=== PATIENT | female | born 1985 | race Caucasian/White ===

== ENCOUNTER 2017-12-18 13:16 | Emergency (ER) | payer OTHER ==
[2017-12-18 13:22] VITALS: BP 126/72; PULSE 94; TEMP 98.4; BMI 23.6
--- NOTE | 2017-12-18 13:41 | PDOC ---
History of Present Illness - General Chief Complaint: Pain Stated Complaint: R/O LT ANKLE SPRAIN Time Seen by Provider: 12/18/17 13:26 History Source: Patient Exam Limitations: No Limitations - History of Present Illness Initial Comments: CHIEF COMPLAINT: 32 y/o afebrile female with PMH CP c/o left ankle pain for a few days. HISTORY OF PRESENT ILLNESS: THe patient does not remember injuring her left foot but states she does trip a lot because of her CP. SHe states this morning her left ankle was swollen and tender. She can still walk on it. She denies numbness/tingling, warmth, streaking. Vital signs on arrival are within normal limits. REVIEW OF SYSTEMS: GENERAL/CONSTITUTIONAL: No fever/chills. No weakness. No weight change. MUSCULOSKELETAL: +left ankle pain. No neck or back pain. SKIN: No rash or easy bruising. NEUROLOGIC: No headache, vertigo, loss of consciousness, or loss of sensation. PHYSICAL EXAM: VITAL_SIGNS: within normal limits GENERAL_APPEARANCE: alert, cooperative, mild obvious discomfort. MENTAL_STATUS: speech clear, oriented X 3, responds appropriately to questions. NEURO: motor intact and sensory intact in injured extremity. EXTREMITIES: good pulse in injured extremity. MIld swelling and TTP of left lateral malleolus without deformities or crepitus. No warmth, erythema or streaking. SKIN: warm, dry, good color. Past History - Past Medical History Allergies/Adverse Reactions: Allergies Allergy/AdvReac Type Severity Reaction Status Date / Time hydromorphone HCl Allergy Severe Hives Verified 12/18/17 13:22 [From Dilaudid] baclofen AdvReac Intermediate Itching Verified 12/18/17 13:22 Home Medications: Ambulatory Orders Levothyroxine [Synthroid -] 100 mcg PO DAILY #0 tablet 06/29/11 Zolpidem Tartrate [Ambien] 10 mg PO ONCE 11/19/12 Ibuprofen [Motrin] 600 mg PO TID #30 tablet 11/14/15 Sulfamethoxazole/Trimethoprim [Bactrim *Ds*] 1 tab PO BID #14 tablet 11/14/15 Tramadol HCl 50 mg PO TID #5 tablet MDD 4 12/18/17 Anemia: No Asthma: No Cancer: No Cardiac Disorders: Yes (ARRYTHMIA) CVA: No COPD: No CHF: No Dementia: No Diabetes: No GI Disorders: No Disorders: No HTN: No Hypercholesterolemia: Yes Liver Disease: No Seizures: No Thyroid Disease: Yes (HYPOTHYROID) - Surgical History Abdominal Surgery: No Appendectomy: Yes Cardiac Surgery: Yes (CARDIAC ABLATION 2009) Cholecystectomy: No Lung Surgery: No Neurologic Surgery: No Orthopedic Surgery: No - Immunization History Td Vaccination: No Immunization Up to Date: Yes - Suicide/Smoking/Psychosocial Hx Smoking Status: No Smoking History: Never smoked Have you smoked in the past 12 months: No Number of Cigarettes Smoked Daily: 0 Hx Alcohol Use: Yes (OCCASIONAL) Drug/Substance Use Hx: No Substance Use Type: None Hx Substance Use Treatment: No *Physical Exam - Vital Signs Last Vital Signs Temp Pulse Resp BP Pulse Ox 98.4 F 94 H 18 126/72 99 12/18/17 13:18 12/18/17 13:18 12/18/17 13:18 12/18/17 13:18 12/18/17 13:18 Medical Decision Making - Medical Decision Making A/P: 32 y/o female with left ankle sprain. Plan is as follows: 1. Xray left ankle 2. PO tramadol Xray left ankle IMPRESSION: No acute fracture. No change since 2012. Patient was given JUICE bandage and RICE instructions. Instructed her to f/u with her doctor within 1 week if symptoms persist. The patient verbalizes understanding of all instructions, has no further questions and is awaiting discharge. *DC/Admit/Observation/Transfer Diagnosis at time of Disposition: Ankle sprain Qualifiers: Encounter type: initial encounter Involved ligament of ankle: unspecified ligament Laterality: left Qualified Code(s): S93.402A - Sprain of unspecified ligament of left ankle, initial encounter - Discharge Dispostion Disposition: HOME Condition at time of disposition: Good - Referrals Referrals: Sj Francisco [Primary Care Provider] - - Patient Instructions Printed Discharge Instructions: DI for Ankle Sprain, How To Perform RICE (Rest , Ice, Compress, Elevate) Additional Instructions: Discharge Instructions: -The xray of your ankle was negative -Please use JUICE bandage for comfort and follow RICE instructions -Return to the ER with any worsening or concerning symptoms - Post Discharge Activity
[2017-12-18] MEDS ORDERED: traMADol HCL 50 MG TABLET PO ONE (14:30)
[2017-12-18] MEDS ORDERED: traMADol HCL 50 MG TABLET ONE (14:38)
== END 2017-12-18 14:42 | disposition home or self-care (01) ==
LOC: JERFT 13:16
DX: S93.402A Sprain of unspecified ligament of left ankle, initial encounter (principal); Z91.81 History of falling; G80.9 Cerebral palsy, unspecified; E03.9 Hypothyroidism, unspecified; E78.00 Pure hypercholesterolemia, unspecified; Z86.79 Personal history of other diseases of the circulatory system; Z88.8 Allergy status to other drugs, medicaments and biological substances
CPT/HCPCS: 73610-TC-LT-FY; 73630-TC-LT; 99281-25

== ENCOUNTER 2018-12-08 23:15 | Emergency (ER) | payer OTHER ==
[2018-12-08 23:24] VITALS: BP 127/82; PULSE 96; TEMP 98.6; BMI 23.6
--- NOTE | 2018-12-08 23:51 | PDOC ---
History of Present Illness - General Chief Complaint: Pain Stated Complaint: PAIN (LFT HAND) Time Seen by Provider: 12/08/18 23:32 History Source: Patient Exam Limitations: No Limitations - History of Present Illness Initial Comments: 12/08/18 23:48 33YOF with h/o cerebral palsy, heart ablation x2, thyroid disorder, and appendectomy p/w right palmar wrist pain radiating to fingers and up to elbow for the past 10-15 days, significantly worse in the past 4 days. States she has seen her PCP who referred her to her neurologist, and she was supposed to have seen her neurologist for this already for an EMG but cancelled because the pain was increasing. She has an appointment for this coming Tuesday. She was prescribed Celebrex but has not taken it because she has a stated sensitive stomach. Tried Tylenol and has not helped. She additionally notes mild numbness/ tingling to right fingers but no additional symptoms, no recent trauma. Past History - Past Medical History Allergies/Adverse Reactions: Allergies Allergy/AdvReac Type Severity Reaction Status Date / Time hydromorphone HCl Allergy Severe Hives Verified 12/18/17 13:22 [From Dilaudid] baclofen AdvReac Intermediate Itching Verified 12/18/17 13:22 Home Medications: Ambulatory Orders Levothyroxine [Synthroid -] 100 mcg PO DAILY #0 tablet 06/29/11 Zolpidem Tartrate [Ambien] 10 mg PO ONCE 11/19/12 Ibuprofen [Motrin] 600 mg PO TID #30 tablet 11/14/15 Sulfamethoxazole/Trimethoprim [Bactrim *Ds*] 1 tab PO BID #14 tablet 11/14/15 Tramadol HCl 50 mg PO TID #5 tablet MDD 4 12/18/17 Ibuprofen [Motrin -] 600 mg PO TID #30 tablet 12/09/18 Oxycodone HCl/Acetaminophen [Percocet 5/325 -] 1 tab PO Q6H #14 tablet MDD 4 Anemia: No Asthma: No Cancer: No Cardiac Disorders: Yes (ARRYTHMIA) CVA: No COPD: No CHF: No Dementia: No Diabetes: No GI Disorders: No Disorders: No HTN: No Hypercholesterolemia: Yes Liver Disease: No Seizures: No Thyroid Disease: Yes (HYPOTHYROID) - Surgical History Abdominal Surgery: No Appendectomy: Yes Cardiac Surgery: Yes (CARDIAC ABLATION 2009) Cholecystectomy: No Lung Surgery: No Neurologic Surgery: No Orthopedic Surgery: No - Immunization History Td Vaccination: No Immunization Up to Date: Yes - Suicide/Smoking/Psychosocial Hx Smoking Status: No Smoking History: Never smoked Have you smoked in the past 12 months: No Number of Cigarettes Smoked Daily: 0 Information on smoking cessation initiated: No Hx Alcohol Use: No Drug/Substance Use Hx: No Substance Use Type: None Hx Substance Use Treatment: No Review of Systems - Review of Systems Able to Perform ROS?: Yes Comments:: GEN: no fever, chills, malaise, generalized weakness, or weight change HEENT: no ear pain, sore throat, vision change, or eye pain CV: no chest pain, palpitations, lightheadedness, syncope, or edema RESP: no cough, wheezing, or SOB GI: no abdominal pain, nausea, vomiting, diarrhea, constipation, or white/black/ bloody stool : no dysuria, hematuria, incontinence, retention, bleeding, or discharge MSK: finger/hand/wrist/forearm pain, no neck/back pain, muscle weakness/pain, or joint swelling/pain NEURO: no headache, seizure, vertigo, numbness, tingling, or focal weakness PSYCH: no substance use, no behavior change SKIN: no jaundice, no rash ROS otherwise negative except as noted in HPI *Physical Exam - Vital Signs Last Vital Signs Temp Pulse Resp BP Pulse Ox 98.6 F 96 H 20 127/82 99 12/08/18 23:23 12/08/18 23:23 12/08/18 23:23 12/08/18 23:23 12/08/18 23:23 - Physical Exam Comments: GENERAL: well-appearing, A/Ox4, no distress, answers questions appropriately HEENT: PERRLA, EOMI, moist mucous membranes NECK/BACK: no midline ttp, no spinal stepoff or deformity, no hematoma, full ROM , neck supple CARDIOVASCULAR: regular rate/rhythm, normal S1S2, no MGR, strong peripheral pulses, capillary refill <2 seconds, extremities wwp, no edema LUNGS/RESPIRATORY: no respiratory distress, CTAB GI/ABDOMEN: symmetric toqb-oc-etry, normoactive BS, soft, no ttp, no midline pulsatile masses : no CVA tenderness EXTREMITIES: positive Phalen's test, tapping the right carpal tunnel reproduced chief complaint exactly, no muscle atrophy, no acute deformity SKIN: warm and dry, no pallor, no jaundice, no rash, no bruising, no skin breakdown, no cuts, no lesions NEUROLOGICAL: GCS 15, CN II-XII grossly intact, 5/5 strength proximally and distally, no facial droop Medical Decision Making - Medical Decision Making 12/08/18 23:45 33YOF p/w palm and finger numbness/tingling and pain from carpal tunnel ( patient points) radiating up forearm x4 days. Initial Vital Signs Temp Pulse Resp BP Pulse Ox 98.6 F 96 H 20 127/82 99 12/08/18 23:23 12/08/18 23:23 12/08/18 23:23 12/08/18 23:23 12/08/18 23:23 Exam: As noted in Physical Exam section.positive Phalens sign, positive Tinel s sign, radial pulse 2+, fingers wwp. DDX IBNLT: carpel tunnel syndrome, median neuropathy, cervical radiculopathy (C6 -7), brachial plexopathy, motor neuron disease (e.g. ALS), ligamentous injury, compartment syndrome, CVA/TIA, etc. W/U ordered: None TX ordered: Percocet, Tylenol, Motrin 12/09/18 00:40 This patient has gotten significant relief of symptoms while in the ED. On last reassessment, vitals are wnl, pain is reasonably controlled, and exam is benign. Workup is not concerning for emergency-level pathology at this time. This patient is appropriate for discharge with close outpatient follow up. They are comfortable with this plan and will follow up with their primary care provider in 1-3 days. She will f/u with her neurologist on Tuesday. Referral information is given for orthopedist on-call in case their sxs do not resolve. Specific return precautions are discussed and they will come back to the ER if necessary. *DC/Admit/Observation/Transfer Diagnosis at time of Disposition: Wrist pain, right - Discharge Dispostion Disposition: HOME Condition at time of disposition: Stable Decision to Admit order: No - Prescriptions Prescriptions: Ibuprofen [Motrin -] 600 mg PO TID #30 tablet Oxycodone HCl/Acetaminophen [Percocet 5/325 -] 1 tab PO Q6H #14 tablet MDD 4 - Referrals Referrals: Sj Francisco [Primary Care Provider] - David Rush MD [Staff Physician] - - Patient Instructions Additional Instructions: You were seen in the ER for wrist/hand/forearm pain. Your symptoms improved with the medications we gave you in the ER. After our assessment, we do not believe you are having a medical emergency at this time, and we believe you are safe to go home. Take your Celebrex as prescribed. 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 Please follow up with your primary care provider in 1-3 days. Call their clinic as soon as possible, tell them you were seen in the ER, and tell them you need an appointment. Please also follow up with your neurologist as scheduled. You can also follow up with the orthopedist clinic (we are providing referral information in this information packet). If you have any new or worsening symptoms, especially skin changes or sign of infection, or inability to move the wrist joint at all, please come back to the ER at any time (24 hours a day) . If you are having severe or life threatening symptoms, or symptoms that make it unsafe to drive or have someone drive you, please call 911. - Post Discharge Activity
[2018-12-08] MEDS ORDERED: ACETAMINOPHEN 325 MG TABLET (FP) PO ONE (23:57)
[2018-12-09] MEDS ORDERED: IBUPROFEN 600 MG TABLET (FP) PO ONE ×2 (00:13→00:31)
[2018-12-09] MEDS ORDERED: ACETAMINOPHEN 325 MG TABLET (FP) ONE (00:30)
--- NOTE | 2018-12-09 00:34 | PDOC ---
Attending Attestation - Resident Resident Name: Mitzi Farrell - ED Attending Attestation I have performed the following: I have examined & evaluated the patient, The case was reviewed & discussed with the resident, I agree w/resident's findings & plan - HPI HPI: 12/09/18 00:32 Pt has carpal tunnel syndrome in her right arm, and that she primarily uses her right arm, resulting in swelling and pain in the wrist. Pt has an appt for EMG with her neurologist this Wed. She comes for pain relied now. She took tylenol once and advil once. - Physicial Exam PE: 12/09/18 00:33 Agree with resident exam. Pt has no discoloration of fingers or hand. Pt has + phalen's test. - Medical Decision Making 12/09/18 00:34 Home with percocet and motrin.
== END 2018-12-09 00:38 | disposition home or self-care (01) ==
LOC: JER 23:15
DX: M25.531 Pain in right wrist (principal); E03.9 Hypothyroidism, unspecified; I49.9 Cardiac arrhythmia, unspecified; G80.9 Cerebral palsy, unspecified
CPT/HCPCS: 99282-25

== ENCOUNTER 2021-08-19 10:49 | Day surgery (SDC) | payer OTHER ==
[2021-08-19] MEDS ORDERED: FERRIC CARBOXYMALTOSE 750 MG in SODIUM CHLORIDE 250 ML IVPB ONE (11:30)
[2021-08-19 13:03] VITALS: BP 125/92; PULSE 103; TEMP 97.6
== END 2021-08-19 16:05 | disposition home or self-care (01) ==
LOC: FINFUSION 10:49 → FM/S 10:51 → FINFUSION 16:05
PROVIDERS: ATTEND Family Medicine
PROC: 3E033GC Introduction of Other Therapeutic Substance into Peripheral Vein, Percutaneous Approach (ICD-10-PCS; principal; 2021-08-19)
DX: D50.9 Iron deficiency anemia, unspecified (principal)
CPT/HCPCS: 81025; 96365; J1439

== ENCOUNTER 2021-09-09 11:33 | Day surgery (SDC) | payer OTHER ==
[2021-09-09] MEDS ORDERED: FERRIC CARBOXYMALTOSE 750 MG in SODIUM CHLORIDE 250 ML IVPB ONE (12:00)
[2021-09-09 13:07] VITALS: BP 105/62; PULSE 89; TEMP 98.4
== END 2021-09-09 13:39 | disposition home or self-care (01) ==
LOC: FINFUSION 11:33 → FM/S 11:35 → FINFUSION 13:39
PROVIDERS: ATTEND Family Medicine
PROC: 3E033GC Introduction of Other Therapeutic Substance into Peripheral Vein, Percutaneous Approach (ICD-10-PCS; principal; 2021-09-09)
DX: D50.9 Iron deficiency anemia, unspecified (principal)
CPT/HCPCS: 81025; 96365; J1439

== ENCOUNTER 2023-05-20 11:23 | Day surgery (SDC) | payer OTHER ==
[2023-05-20] MEDS ORDERED: FERRIC CARBOXYMALTOSE 750 MG in SODIUM CHLORIDE 250 ML IVPB ONE (12:30)
[2023-05-20 13:09] VITALS: BP 126/52; PULSE 67; RESP 18; TEMP 98.1
== END 2023-05-20 13:33 | disposition home or self-care (01) ==
LOC: FINJECTION 11:23 → FINFUSION 11:23 → FM/S 11:26 → FINJECTION 13:33
PROVIDERS: ATTEND Family Medicine
PROC: 3E033GC Introduction of Other Therapeutic Substance into Peripheral Vein, Percutaneous Approach (ICD-10-PCS; principal; 2023-05-20)
DX: D50.9 Iron deficiency anemia, unspecified (principal)
CPT/HCPCS: 81025; 96365; J1439

== ENCOUNTER 2023-05-27 11:47 | Day surgery (SDC) | payer OTHER ==
[2023-05-27] MEDS ORDERED: FERRIC CARBOXYMALTOSE 750 MG in SODIUM CHLORIDE 250 ML IVPB ONE (13:00)
[2023-05-27 14:42] VITALS: BP 122/56; PULSE 67; RESP 18; TEMP 97.9
== END 2023-05-27 14:43 | disposition home or self-care (01) ==
LOC: FINJECTION 11:47 → FINFUSION 11:47 → FM/S 11:49 → FINJECTION 14:43
PROVIDERS: ATTEND Family Medicine
PROC: 3E033GC Introduction of Other Therapeutic Substance into Peripheral Vein, Percutaneous Approach (ICD-10-PCS; principal; 2023-05-27)
DX: D50.9 Iron deficiency anemia, unspecified (principal)
CPT/HCPCS: 81025; 96365; J1439

== ENCOUNTER 2023-06-02 12:33 | Emergency (ER) | payer OTHER ==
[2023-06-02 12:57] VITALS: BMI 21.1
[2023-06-02] MEDS ORDERED: predniSONE 20 MG TABLET (UD) PO ONE (13:38)
[2023-06-02] MEDS ORDERED: SODIUM CHLORIDE 1,000 ML IV ONE (13:38)
[2023-06-02] MEDS ORDERED: FAMOTIDINE 20 MG/50 ML IVPB 20 MG in PREMIX 50 IVPB ONE (13:38)
[2023-06-02] MEDS ORDERED: predniSONE 20 MG TABLET (UD) ONE (14:00)
[2023-06-02 14:07] LABS: BASO % 0.8 % (0-2.0); EOS % 0.8 % (0-4.5); HEMATOCRIT 36.9 % (32.4-45.2); LYMPH % 12.9 % (8-40); MCH 23.3 pg (25.7-33.7); MCHC 29.9 g/dl (32.0-36.0); MEAN CELL VOLUME 77.9 fl (80-96); MEAN PLT VOLUME 8.4 fl (7.5-11.1); MONO % 3.9 % (3.8-10.2); NEUT % 81.6 % (42.8-82.8); PLATELET COUNT 304 10^3/uL (134-434); RBC 4.73 M/mm3 (3.60-5.2); WHITE BLOOD COUNT 5.4 K/mm3 (4.0-10.0)
[2023-06-02] MEDS ORDERED: ACETAMINOPHEN 1000 MG/100 ML BAG IVPB ONE (14:15)
[2023-06-02 14:30] LABS: POTASSIUM 3.9 mmol/L (3.5-5.1)
[2023-06-02 14:32] LABS: BLOOD UREA NITROGEN 6.9 mg/dL (7-18); CALCIUM 9.5 mg/dL (8.5-10.1)
[2023-06-02 14:33] LABS: ALBUMIN 4.3 g/dl (3.4-5.0)
[2023-06-02 14:36] LABS: CREATININE 0.7 mg/dL (0.55-1.3)
[2023-06-02 14:37] LABS: BILIRUBIN,TOTAL 0.6 mg/dL (0.2-1); TOT PROT 8.3 g/dl (6.4-8.2)
[2023-06-02] MEDS ORDERED: ACETAMINOPHEN INJECTION 100 ML IVPB ONE (14:42)
[2023-06-02] MEDS ORDERED: FAMOTIDINE 20 MG/50 ML IVPB 20 MG/50 ML MG IVPB ONE (14:43)
[2023-06-02] MEDS ORDERED: CYCLOBENZAPRINE HCL 10 MG TABLET (FP) PO ONE (15:52)
[2023-06-02] MEDS ORDERED: CYCLOBENZAPRINE HCL 10 MG TABLET (FP) ONE (15:57)
[2023-06-02] MEDS ORDERED: LIDOCAINE 5% TOPICAL PATCH TP ONE (16:29)
[2023-06-02] MEDS ORDERED: LIDOCAINE 4% PATCH TP ONE (16:38)
[2023-06-02 17:55] VITALS: BP 118/68; PULSE 88; RESP 21; TEMP 98.5
[2023-06-02] MEDS ORDERED: LIDOCAINE PATCH REMOVAL MC ONE (22:00)
== END 2023-06-02 18:07 | disposition home or self-care (01) ==
LOC: JER 12:33
PROC: 3E033GC Introduction of Other Therapeutic Substance into Peripheral Vein, Percutaneous Approach (ICD-10-PCS; principal; 2023-06-02)
PROC: 3E033GC Introduction of Other Therapeutic Substance into Peripheral Vein, Percutaneous Approach (ICD-10-PCS; 2023-06-02)
PROC: 3E033NZ Introduction of Analgesics, Hypnotics, Sedatives into Peripheral Vein, Percutaneous Approach (ICD-10-PCS; 2023-06-02)
DX: R21 Rash and other nonspecific skin eruption (principal); T45.4X5A Adverse effect of iron and its compounds, initial encounter; R74.01 Elevation of levels of liver transaminase levels; M79.89 Other specified soft tissue disorders; L29.9 Pruritus, unspecified; Z20.822 Contact with and (suspected) exposure to COVID-19
CPT/HCPCS: 0241U-QW; 36415; 80053; 83540; 85025; 93971-TC; 99284-25

== ENCOUNTER 2023-08-14 13:13 | Observation (INO) | payer OTHER ==
[2023-08-14 13:34] VITALS: BMI 22.4
[2023-08-14 15:32] LABS: BASO % 0.5 % (0-2.0); HEMATOCRIT 40.5 % (32.4-45.2); HEMOGLOBIN 13.7 GM/dL (10.7-15.3); LYMPH % 14.7 % (8-40); MCH 30.7 pg (25.7-33.7); MCHC 33.9 g/dl (32.0-36.0); MEAN CELL VOLUME 90.6 fl (80-96); MEAN PLT VOLUME 7.8 fl (7.5-11.1); MONO % 6.4 % (3.8-10.2); NEUT % 77.4 % (42.8-82.8); PLATELET COUNT 273 10^3/uL (134-434); RBC 4.47 M/mm3 (3.60-5.2); RDW 14.7 % (11.6-15.6); WHITE BLOOD COUNT 8.3 K/mm3 (4.0-10.0)
[2023-08-14 15:37] LABS: INR 1.11 (0.83-1.09); PROTHROMBIN TIME (PATIENT) 12.9 SEC (9.7-13.0)
[2023-08-14 15:40] LABS: ACTIVATED PTT 32.9 SECONDS (25.2-36.5)
[2023-08-14] MEDS: SODIUM CHLORIDE 0.9% 500 ML INFUS.BAG IV ONE (15:51)
[2023-08-14 15:57] LABS: ALBUMIN 4.2 g/dl (3.4-5.0); BLOOD UREA NITROGEN 12.3 mg/dL (7-18); MAGNESIUM 2.1 mg/dL (1.8-2.4)
[2023-08-14 16:00] LABS: CREATININE 0.7 mg/dL (0.55-1.3); PHOSPHOROUS 1.8 mg/dL (2.5-4.9)
[2023-08-14 16:01] LABS: BILIRUBIN,TOTAL 0.7 mg/dL (0.2-1); TOT PROT 7.8 g/dl (6.4-8.2)
[2023-08-14] MEDS ORDERED: ALPRAZolam 1 MG TABLET ONE (19:52)
[2023-08-14] MEDS: ALPRAZolam 1 MG TABLET PO ONE (19:55)
[2023-08-14] MEDS ORDERED: BACLOFEN 10 MG TABLET (FP) ONE (20:38)
[2023-08-14] MEDS: BACLOFEN 10 MG TABLET (FP) PO ONE (20:44)
[2023-08-14] MEDS ORDERED: ZOLPIDEM TARTRATE 5 MG TABLET ONE (21:57)
[2023-08-14] MEDS ORDERED: QUEtiapine FUMARATE 25 MG TABLET ONE (21:57)
[2023-08-14] MEDS: QUEtiapine FUMARATE 50 MG TABLET PO SCH (22:02)
[2023-08-14] MEDS: ZOLPIDEM TARTRATE 5 MG TABLET PO ONE (22:02)
[2023-08-14] MEDS ORDERED: ALPRAZolam 0.25 MG TABLET ONE (23:51)
[2023-08-14] MEDS: ALPRAZolam 1 MG TABLET PO PRN (23:55)
[2023-08-15] MEDS ORDERED: ALPRAZolam 0.25 MG TABLET ONE (03:20)
[2023-08-15] MEDS ORDERED: ACETAMINOPHEN 325 MG TABLET (FP) ONE (06:18)
[2023-08-15] MEDS ORDERED: ALBUTEROL SO4 2.5/IPRATROPIUM 0.5 INH SOL 3 ML VIAL.NEB. NEB ONE (06:18)
[2023-08-15] MEDS ORDERED: LEVOTHYROXINE NA 75 MCG TABLET (FP) ONE (06:19)
[2023-08-15] MEDS: ALBUTEROL SO4 2.5/IPRATROPIUM 0.5 INH SOL 3 ML VIAL.NEB. NEB ONE (06:23)
[2023-08-15] MEDS: LEVOTHYROXINE NA 75 MCG TABLET (FP) PO SCH (06:23)
[2023-08-15] MEDS: ACETAMINOPHEN 325 MG TABLET (FP) PO ONE (06:23)
[2023-08-15 07:34] LABS: HEMATOCRIT 36.8 % (32.4-45.2); HEMOGLOBIN 12.4 GM/dL (10.7-15.3); MCH 30.5 pg (25.7-33.7); MCHC 33.5 g/dl (32.0-36.0); MEAN PLT VOLUME 8.2 fl (7.5-11.1); PLATELET COUNT 249 10^3/uL (134-434); RBC 4.05 M/mm3 (3.60-5.2); RDW 14.6 % (11.6-15.6); WHITE BLOOD COUNT 7.1 K/mm3 (4.0-10.0)
[2023-08-15 08:01] LABS: POTASSIUM 3.5 mmol/L (3.5-5.1)
[2023-08-15 08:04] LABS: CALCIUM 8.5 mg/dL (8.5-10.1)
[2023-08-15 08:05] LABS: BLOOD UREA NITROGEN 8.8 mg/dL (7-18); MAGNESIUM 1.7 mg/dL (1.8-2.4)
[2023-08-15 08:11] LABS: CREATININE 0.6 mg/dL (0.55-1.3)
[2023-08-15 14:04] VITALS: RESP 19
[2023-08-16 07:42] VITALS: BP 120/78; PULSE 78; TEMP 97.5
== END 2023-08-15 16:13 | disposition home or self-care (01) ==
LOC: JER 13:13 → JERBED 16:27
PROVIDERS: ADMIT Internal Medicine; ATTEND Internal Medicine
PROC: 3E0F7GC Introduction of Other Therapeutic Substance into Respiratory Tract, Via Natural or Artificial Opening (ICD-10-PCS; principal; 2023-08-14)
PROC: 3E0337Z Introduction of Electrolytic and Water Balance Substance into Peripheral Vein, Percutaneous Approach (ICD-10-PCS; 2023-08-14)
PROC: 3E0F7GC Introduction of Other Therapeutic Substance into Respiratory Tract, Via Natural or Artificial Opening (ICD-10-PCS; 2023-08-14)
PROC: 3E0337Z Introduction of Electrolytic and Water Balance Substance into Peripheral Vein, Percutaneous Approach (ICD-10-PCS; 2023-08-14)
DX: R00.2 Palpitations (principal); I49.9 Cardiac arrhythmia, unspecified; I45.6 Pre-excitation syndrome; J45.909 Unspecified asthma, uncomplicated; F32.A Depression, unspecified; G80.9 Cerebral palsy, unspecified; E03.9 Hypothyroidism, unspecified; E78.00 Pure hypercholesterolemia, unspecified
CPT/HCPCS: 36415; 71046-TC-FY; 80048; 80053; 83735; 84100; 84443; 84484; 85025; 85027; 85610; 85730; 93005; 93010; 93306-TC; 94640; 96360; 99285-25; G0378; J0475

== ENCOUNTER 2024-08-24 09:54 | Day surgery (SDC) | payer OTHER ==
[2024-08-24] MEDS: CYANOCOBALAMIN (VITAMIN B-12) 1000 MCG/1 ML VIAL IM ONE (10:01)
[2024-08-24] MEDS: IRON SUCROSE INJECTION 200 MG in SODIUM CHLORIDE 100 ML IVPB ONE (10:01)
[2024-08-24 14:27] VITALS: BP 136/83; PULSE 90; RESP 20; TEMP 98.3
== END 2024-08-24 11:00 | disposition home or self-care (01) ==
LOC: JONCCHEMO 09:54
PROVIDERS: ATTEND Internal Medicine Hematology & Oncology
PROC: 3E033GC Introduction of Other Therapeutic Substance into Peripheral Vein, Percutaneous Approach (ICD-10-PCS; principal; 2024-08-24)
DX: D50.9 Iron deficiency anemia, unspecified (principal); D51.9 Vitamin B12 deficiency anemia, unspecified
CPT/HCPCS: 96365; J1756

== ENCOUNTER 2024-09-28 09:50 | Day surgery (SDC) | payer OTHER ==
[2024-09-28] MEDS: IRON SUCROSE INJECTION 200 MG in SODIUM CHLORIDE 100 ML IVPB ONE (10:21)
[2024-09-28] MEDS: CYANOCOBALAMIN (VITAMIN B-12) 1000 MCG/1 ML VIAL IM ONE (10:21)
[2024-09-28 16:00] VITALS: RESP 20; TEMP 97.3
[2024-09-28 16:06] VITALS: BP 128/81; PULSE 101
== END 2024-09-28 11:30 | disposition home or self-care (01) ==
LOC: JONCNONCHE 09:50
PROVIDERS: ATTEND Internal Medicine Hematology & Oncology
PROC: 3E033GC Introduction of Other Therapeutic Substance into Peripheral Vein, Percutaneous Approach (ICD-10-PCS; principal; 2024-09-28)
PROC: 3E023GC Introduction of Other Therapeutic Substance into Muscle, Percutaneous Approach (ICD-10-PCS; 2024-09-28)
DX: D50.9 Iron deficiency anemia, unspecified (principal); D51.0 Vitamin B12 deficiency anemia due to intrinsic factor deficiency
CPT/HCPCS: 96365; 96372; J1756